=== PATIENT | male | born 1960 ===

== ENCOUNTER 2020-01-31 10:55 | Inpatient (IN) | payer SELFPAY ==
[~2020-01-31] VITALS: Ht 162.6 cm; Wt 90.3 kg
[2020-01-31 14:50] LABS: Alanine Aminotransfer (ALT/SGP 79 U/L (12-78); Albumin, Blood 3.8 g/dL (3.4-5.0); Albumin/Globulin Ratio 1.2 (0.8-1.8); Alk Phos 74 U/L (50-136); Anion Gap 14 mmol/L (6-16); Aspartate Aminotrans (AST/SGOT 65 U/L (12-37); Bilirubin, Total 0.8 mg/dL (0.1-1.0); Blood Urea Nitrogen 16 mg/dL (8-24); Bun/Creatinine Ratio 16.6 (12.0-20.0); CHOL/HDL RATIO 5.2; CO2, Blood 20 mmol/L (21-32); Calcium, Blood 8.6 mg/dL (8.5-10.1); Chloride, Blood 107 mmol/L (98-108); Cholesterol 172 mg/dL (50-200); Creatinine, Blood 0.96 mg/dL (0.60-1.20); Globulin, Blood 3.3 g/dL (2.2-4.0); Glomerular Filtration Rate >60 (60-); Glucose, Blood 211 mg/dL (70-99); HDL Cholesterol 33 mg/dL (>39); LDL/HDL RATIO 3.4; Low Density Lipoprotein Chol 111 mg/dL (0-110); Magnesium, Blood 1.9 mg/dL (1.6-2.4); Potassium, Blood 3.5 mmol/L (3.5-5.5); Sodium, Blood 141 mmol/L (136-145); Total Protein, Blood 7.1 g/dL (6.4-8.2); Triglycerides 139 mg/dL (30-160); Troponin I 0.173 ng/mL (0.000-0.040); Very Low Density Lipoprot Chol 27 mg/dL (6-32)
[2020-01-31 14:59] LABS: BASOPHILS ABSOLUTE AUTO 0.07 K/mm3 (0.00-0.23); BASOPHILS PERCENT AUTO 1 % (0-2); EOSINOPHILS PERCENT AUTO 2 % (0-6); Hematocrit 46.9 % (37.0-53.0); Hemoglobin 16.4 g/dL (13.5-17.5); IMMATURE GRAN ABSOLUTE AUTO 0.03 K/mm3 (0.00-0.10); IMMATURE GRAN PERCENT AUTO 0 % (0-1); LYMPHOCYTES ABSOLUTE AUTO 2.46 K/mm3 (0.84-5.20); LYMPHOCYTES PERCENT AUTO 23 % (21-46); MONOCYTES ABSOLUTE AUTO 0.79 K/mm3 (0.16-1.47); MONOCYTES PERCENT AUTO 7 % (4-13); Mean Corpuscular HGB 32.4 pg (26.0-34.0); Mean Corpuscular Volume 93 fL (80-100); Mean Platelet Volume 12.9 fL (9.1-12.4); NEUTROPHILS PERCENT AUTO 67 % (41-73); Platelet Count 199 K/mm3 (150-400); RDW Coefficient Variation 11.5 % (11.7-14.2); RDW Standard Deviation 39.3 fL (35.1-46.3); Red Blood Cell Count 5.06 M/mm3 (4.30-5.90); White Blood Cell Count 10.75 K/mm3 (4.00-11.30)
[2020-01-31] MEDS ORDERED: ASPI81CH PO (15:07)
[2020-01-31] MEDS ORDERED: CETI5 PO (15:08)
--- NOTE | 2020-01-31 18:45 | NUR ---
ADMISSION / SHIFT SUMMARY: REPORT RECEIVED FROM EVA HAMMOND RN, AT BEDSIDE. PT ARRIVED TO ICU-11 AT 1218. HE IS DROWSY, BUT A&O ON WAKING. HE DENIES ANY PAIN OR SOB AT THAT TIME. R RADIAL SITE STABLE W/ TR BAND IN PLACE. 11CC AIR UPON PLACEMENT AT 1200. ASSESSMENT CHARTED. PT BEGINS HAVING FLUCTUATIONS OF HR DOWN TO 50s, QUICKLY PICKING UP TO 90s & THEN SLOWING TO 50s AGAIN. PACER PADS HAVE BEEN PLACED ON PT. HE IS ASYMPTOMATIC OF THIS & SAYS THAT HE IS GENERALLY BRADYCARDIC BUT "SOMETIMES" IN THE 90s WELL. ST SEGMENT ELEVATED ON ADMISSION, HAS SINCE IMPROVED. LATER IN THE AFTERNOON, THE PT BEGINS HAVING C/O LEFT ARM PAIN, SIMILAR TO THE PAIN THAT BROUGHT HIM TO THE HOSPITAL, BUT W/O ANY CURRENT CHEST OR JAW PAIN. THIS PAIN HAS QUICKLY RESOLVED. DR COOPER HAS BEEN AT BEDSIDE TO F/U W/ THE PT. DISCUSSED W/ HIM PT's TRANSIENT ARM PAIN. 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 THIS EVENING, THE PT IS HAVING MORE CONSISTENT HEAD & ARM PAIN, W/ BRIEF PERIODS OF "INDIGESTION." HE HAS ALSO HAD ONE EPISODE OF EMESIS THIS SHIFT W/ MEDS PER EMAR FOR NAUSEA. FENTANYL PER EMAR TO SEE IF PAIN WILL RESOLVE, NITRO TO BE ATTEMPTED NEXT IF PAIN CONTINUES. OTHERWISE, PT ASSESSMENT UNCHANGED THIS SHIFT. HE IS PLEASANT & COOPERATIVE W/ CARE. VOIDS W/O DIFFICULTY. TOLERATING SMALL AMNTS OF PO INTAKE SINCE ANTIEMETIC ADMINISTRATION. TR BAND HAS BEEN FULLY DEFLATED/ REMOVED & CLEAR OCCLUSIVE TEGADERM HAS BEEN PLACED TO R RADIAL SITE. IMMOBILIZER REMAINS IN PLACE. WILL CONTINUE TO MONITOR & REPORT OFF TO ONCOMING RN.
--- NOTE | 2020-01-31 19:00 | NUR ---
ASSUMED PT CARE BEDSIDE REPORT WITH NANETTE REDDY AT 1850. ASSUMED PT CARE. PT ALERT AND ORIENTED. ANSWERS QUESTIONS AND USES CALL LIGHT. PT STATE NAUSEA IMPROVED, BUT CHEST PAIN AND ARM PAIN PERSIST. MEDICATED WITH NITRO PER EMAR. MONITOR SHOWS HR 80S NSR. BP STABLE. PT ON RA, SATS >92%. PT S/P STENT PLACEMENT TO PROX MID RCA VIA RIGHT RADIUS. SITE HAS TEGADERM PLACED. NO HEMATOMA. ABD SOFT, NON TENDER. PT HAD SOME NAUSEA AND ONE EPISODE OF EMESIS, IMPROVED CURRENTLY. PT VOIDS PER URINAL. PULSES STRONG AND EQUAL. PT ABLE TO MOVE ALL EXTREMS AND REPOSITION INDEPENDENTLY. CALL LIGHT IN REACH. BED LOW. SEE FULL SHIFT ASSESSMENT.
[2020-02-01 04:18] LABS: Mean Corpuscular HGB 31.8 pg (26.0-34.0); Mean Corpuscular HGB Conc 33.3 g/dL (31.5-36.5); Mean Corpuscular Volume 95 fL (80-100); Mean Platelet Volume 12.2 fL (9.1-12.4); Platelet Count 185 K/mm3 (150-400); RDW Coefficient Variation 11.9 % (11.7-14.2); RDW Standard Deviation 41.2 fL (35.1-46.3); Red Blood Cell Count 4.72 M/mm3 (4.30-5.90)
[2020-02-01 04:35] LABS: Anion Gap 7 mmol/L (6-16); Blood Urea Nitrogen 16 mg/dL (8-24); CO2, Blood 25 mmol/L (21-32); Calcium, Blood 8.5 mg/dL (8.5-10.1); Chloride, Blood 105 mmol/L (98-108); Glomerular Filtration Rate >60 (60-); Glucose, Blood 194 mg/dL (70-99); Potassium, Blood 4.2 mmol/L (3.5-5.5); Sodium, Blood 137 mmol/L (136-145)
--- NOTE | 2020-02-01 06:08 | NUR ---
SHIFT SUMMARY PT HAD GOOD SHIFT. REMAINS ALERT AND ORIENTED X4. PT ABLE TO MOVE AROUND IN BED INDEPENDENTLY AND STAND TO USE URINAL. AT START OF SHIFT PT HAD ALOT OF CP AND LEFT ARM PAIN, PER PT BOTH ARE MUCH IMPROVED. SPOKE WITH DR COOPER MADE AWARE AND NEW MEDS ORDERED. PT BP WNL, HR 70-90S. SKIN CLEAN DRY AND INTACT MOSTLY. RIGHT RADIAL ACCESS SITE WITH TEGADERM INTACT. PT TOLERATING FLUIDS AND CRACKERS. PT LUNG SOUNDS CLEAR THROUGHOUT, SATS >92% ON RA. ABD SOFT AND NON TENDER. SLEPT WELL. CALL LIGHT IN REACH. WILL REPORT TO ONCOMING SHIFT.
--- NOTE | 2020-02-01 08:00 | NUR ---
ASSUMED CARE: REPORT RECEIVED FROM FAROOQ Rodriguez RN. ASSUMED CARE OF THIS PT AT APPROX 0700. ON ASSESSMENT, THE PT IS AWAKE, A&O. HE DENIES ANY CURRENT CHEST, ARM OR JAW PAIN, ALSO DENIES NAUSEA AT THIS TIME. ASSESSMENT CHARTED, VSS. ACCESS SITE TO R WRIST IS WNL; NO BLEEDING, BRUISING OR HEMATOMA FORMATION NOTED. TEGADERM DRESSING TO SITE IS CDI. PLAN IS FOR PT TO D/C HOME TODAY. WILL CONTINUE TO MONITOR & UPDATE NEEDED.
[2020-02-01] MEDS ORDERED: ATOR80 PO (09:53)
[2020-02-01] MEDS ORDERED: LISI5 PO (09:54)
[2020-02-01] MEDS ORDERED: CLOP75 PO (09:54)
[2020-02-01] MEDS ORDERED: METO25ER PO (09:56)
[2020-02-01] MEDS ORDERED: NITR.4SL SL (10:00)
--- NOTE | 2020-02-01 11:26 | NUR ---
DISCHARGE TO HOME: PT HAS BEEN ABLE TO DRESS SELF & IS READY FOR DISCHARGE TO HOME. R WRIST IMMOBILIZER REMAINS IN PLACE A REMINDER OF RADIAL SITE PRECAUTIONS. PIVs & ALL MONITORS HAVE BEEN REMOVED FROM THE PT. D/C EDUCATION HAS BEEN COMPLETED & INCLUDES RESOURCES FOR ALL NEW MEDICATIONS, RADIAL SITE PRECAUTIONS, ANGIOGRAM CARE-AFTER, ETC (SEE DISCHARGE SCREEN). THE PT HAS SIGNED A [employer] CONTRACT & RADIAL ACCESS INSTRUCTION SHEET. HE HAS BEEN GIVEN A PCP ESTABLISHMENT PACKET & INSTRUCTED TO TAKE THE COMPLETED PACKET TO ONE OF THE LISTED URGENT CARE FACILITIES TO HAVE HIS F/U APPOINTMENT & BE ASSIGNED A PCP. THE PT & HIS BOTH VERBALIZE UNDERSTANDING OF THIS EDUCATION & DENY FURTHER QUESTIONS AT THIS TIME. THE PT HAS BEEN TAKEN OUT VIA WC BY THIS RN AT 1115. HE IS IN GOOD SPIRITS & DENIES ANY SORT OF PAIN AT THAT TIME.
[2020-02-02 10:30] LABS: Calcium, Ionized (POC) 1.01 mmol/L (1.10-1.46); Chloride (POC) 107 mmol/L (98-108); Creatinine (POC) 0.9 mg/dL (0.8-1.3); Glucose (ISTAT POC) 209 mg/dL (70-99); Hemoglobin (POC) 16.3 g/dL (13.5-17.5); Potassium (POC) 3.9 mmol/L (3.5-5.5); Sodium (POC) 140 mmol/L (135-148); Total CO2 (POC) 19 mmol/L (21-32)
== END 2020-02-01 11:15 | disposition home or self-care (01) | DRG 247 ==
LOC: ER 10:55 → ICUW 10:56 → ER 12:52 → ICUW 14:39
PROVIDERS: ADMIT Internal Medicine Interventional Cardiology
PROC: 027034Z Dilation of Coronary Artery, One Artery with Drug-eluting Intraluminal Device, Percutaneous Approach (ICD-10-PCS; principal; 2020-01-31)
PROC: B2111ZZ Fluoroscopy of Multiple Coronary Arteries using Low Osmolar Contrast (ICD-10-PCS; 2020-01-31)
DX: I21.19 ST elevation (STEMI) myocardial infarction involving other coronary artery of inferior wall (principal); Z79.82 Long term (current) use of aspirin; Z79.02 Long term (current) use of antithrombotics/antiplatelets
CPT/HCPCS: 71045; 76937; 80047; 80048; 80053; 80061; 83735; 84484; 85014; 85025; 85027; 85347; 93005; 93010; 93454; 96374-59; 96375; 96376; 99152; 99153; 99285-25; A9270-GY; C1725; C1769; C1874; C1887; C1894; C9606; G0378; J0461; J1644; J2250; J2270; J2405; J3010; J3246; J7030; Q9967